=== PATIENT | female | born 1955 | race Caucasian/White ===

== ENCOUNTER 2019-06-09 06:35 | Inpatient (IN) | payer BC ==
[~2019-06-09] VITALS: Ht 152.4 cm; Wt 58.9 kg
[~2019-06-09 06:35] MED LIST: CARI350T PO; CEPH-368 PO; CYCL-259 PO; DIAZ10TA PO; LISI-170 PO; METH750T87 PO; NAPR-685 PO; ONDA4TAB7 PO; OXYC10TA6 PO; ZOLP10TA PO
[2019-06-09] MEDS ORDERED: LACTATED RINGERS 1,000 ML IV SCH (06:57)
[2019-06-09 06:58] VITALS: BP 129/88
[2019-06-09] MEDS ORDERED: CHLORHEXIDINE 15 ML UDC MM ONE (07:00)
[2019-06-09] MEDS ORDERED: VANCOMYCIN 1,000 MG ONE (07:05)
[2019-06-09] MEDS ORDERED: CHLORHEXIDINE 15 ML UDC ONE (07:06)
[2019-06-09] MEDS ORDERED: MIDAZOLAM 1 MG/ML, 2ML ONE ×2 (08:31→10:28)
[2019-06-09] MEDS ORDERED: FENTANYL PF 250 MCG/5ML ONE (08:31)
[2019-06-09] MEDS ORDERED: LIDOCAINE-MPF 2% ,5ML ONE (08:33)
[2019-06-09] MEDS ORDERED: ALBUTEROL SULFATE 2.5 MG/3 ML NPPB PRN (09:30)
[2019-06-09] MEDS ORDERED: OXYcodone 5 MG/5 ML ORAL.SOL UDC PO PRN (09:30)
[2019-06-09] MEDS ORDERED: DIAZEPAM 5 MG/ML, 2ML IVPush PRN (09:30)
[2019-06-09] MEDS ORDERED: ACETAMINOPHEN 325 MG TABLET PO PRN (09:30)
[2019-06-09] MEDS ORDERED: MEPERIDINE/PF 25MG/ML,1ML IVPush PRN (09:30)
[2019-06-09] MEDS ORDERED: MIDAZOLAM 1 MG/ML, 2ML IV PRN (09:30)
[2019-06-09] MEDS ORDERED: FENTANYL PF 100 MCG/2ML IV PRN (09:30)
[2019-06-09] MEDS ORDERED: LABETALOL 5MG/ML, 20ML IV PRN (09:30)
[2019-06-09] MEDS ORDERED: hydrALAzine 20 MG/ML, 1ML IV PRN (09:30)
[2019-06-09] MEDS ORDERED: PROMETHAZINE 25 MG/ML, 1ML IV PRN (09:30)
[2019-06-09] MEDS ORDERED: VANCOMYCIN 1,000 MG IM ONE (09:31)
[2019-06-09] MEDS ORDERED: HEPARIN 1,000 UNITS/ML, 30ML IVPB ONE (09:47)
[2019-06-09] MEDS ORDERED: DEXAMETHASONE 4 MG/ML, 1ML ONE (10:04)
[2019-06-09] MEDS ORDERED: ONDANSETRON 2MG/ML, 2ML ONE (10:04)
[2019-06-09] MEDS ORDERED: CEFAZOLIN 1,000 MG ONE (10:04)
[2019-06-09] MEDS ORDERED: GLYCOPYRROLATE 0.2MG/1ML, 5ML ONE (10:04)
[2019-06-09] MEDS ORDERED: SUCCINYLCHOLINE 20 MG/ML, 10ML ONE (10:04)
[2019-06-09] MEDS ORDERED: ROCURONIUM 10MG/ML,5ML ONE (10:04)
[2019-06-09] MEDS ORDERED: PROPOFOL 10 MG/ML, 20ML ONE (10:04)
[2019-06-09] MEDS ORDERED: NEOSTIGMINE 1 MG/ML, 10ML ONE (10:04)
[2019-06-09] MEDS ORDERED: FENTANYL PF 100 MCG/2ML ONE (10:14)
[2019-06-09] MEDS ORDERED: HYDROmorphone 2 MG/ML, 1ML ONE (10:28)
[2019-06-09] MEDS: HYDROmorphone 2 MG/ML, 1ML IVPush PRN ×3 (10:35→11:16)
[2019-06-09] MEDS ORDERED: METHOCARBAMOL 1,000 MG in DEXTROSE 5% 100 ML IV STA (10:52)
[2019-06-09] MEDS ORDERED: ONDANSETRON 2MG/ML, 2ML IV PRN (13:00)
[2019-06-09] MEDS ORDERED: BISACODYL 10 MG SUPP PR PRN (13:00)
[2019-06-09] MEDS ORDERED: MAGNESIUM HYDROXIDE 8%, 30ML UDC PO PRN (13:00)
[2019-06-09] MEDS ORDERED: morphine SULFATE 10 MG/ML, 1ML IV PRN (13:00)
[2019-06-09] MEDS ORDERED: PROMETHAZINE 25 MG/ML, 1ML IM PRN (13:00)
[2019-06-09] MEDS: METOCLOPRAMIDE 5 MG/ML, 2ML IV SCH ×2 (14:05→19:49)
[2019-06-09] MEDS: D5%-0.9% NACL+KCL 20MEQ 1,000 ML IV SCH (14:05)
[2019-06-09 15:10] VITALS: BP 118/77
[2019-06-09] MEDS: CYCLOBENZAPRINE 10 MG TABLET PO SCH ×2 (16:47→22:38)
[2019-06-09] MEDS: CEFAZOLIN PMX 1GM/50ML 50 ML IVPB SCH (16:47)
[2019-06-09 19:53] VITALS: BP 118/75
[2019-06-09] MEDS ORDERED: ZOLPIDEM 10MG TABLET ONE (22:35)
[2019-06-09] MEDS: ZOLPIDEM 10MG TABLET PO PRN (22:37)
[2019-06-10] MEDS: CEFAZOLIN PMX 1GM/50ML 50 ML IVPB SCH (01:36)
[2019-06-10] MEDS: D5%-0.9% NACL+KCL 20MEQ 1,000 ML IV SCH ×4 (01:36→20:28)
[2019-06-10 01:42] VITALS: BP 105/63
[2019-06-10] MEDS: METOCLOPRAMIDE 5 MG/ML, 2ML IV SCH ×2 (02:52→09:21)
[2019-06-10 05:10] LABS: BASOPHILS # (AUTO) 0.03 x10^3/uL (0-0.1); BASOPHILS % (AUTO) 0 % (0-1); EOSINOPHILS # (AUTO) 0.01 x10^3/uL (0-0.4); EOSINOPHILS % (AUTO) 0 % (1-7); LYMPHOCYTES % (AUTO) 12 % (22-44); MD NO; MEAN CORPUSCULAR HEMOGLOBIN 30.2 pg (27.0-34.8); MEAN CORPUSCULAR HGB CONC 32.7 g/dL (32.4-35.8); MEAN CORPUSCULAR VOLUME 92.4 fL (80-100); MEAN PLATELET VOLUME 7.5 fL (7.4-10.4); MONOCYTES # (AUTO) 0.68 x10^3/uL (0.2-0.8); MONOCYTES % (AUTO) 7 % (2-9); NEUTROPHILS # (AUTO) 7.58 x10^3/uL (1.8-6.8); NEUTROPHILS % (AUTO) 81 % (42-75); PLATELET COUNT 247 x10^3/uL (130-400); RED BLOOD COUNT 3.72 x10^6/uL (3.82-5.3); RED CELL DISTRIBUTION WIDTH 14.5 % (9.6-15.2)
[2019-06-10 05:13] LABS: CHLORIDE 108 mmol/L (98-107)
[2019-06-10 05:18] LABS: ANION GAP 5 mmol/L (5-15); CALCIUM 8.2 mg/dL (8.5-10.1)
[2019-06-10] MEDS: ENOXAPARIN 30 MG/0.3 ML SQ SCH ×2 (06:12→17:53)
[2019-06-10 08:00] VITALS: BP 128/77
[2019-06-10] MEDS: LISINOPRIL 20 MG TABLET PO SCH (08:52)
[2019-06-10] MEDS: CYCLOBENZAPRINE 10 MG TABLET PO SCH ×3 (08:52→20:27)
[2019-06-10] MEDS: SENNA/DOCUSATE TABLET PO SCH (08:52)
[2019-06-10] MEDS: DIAZEPAM 5 MG TABLET PO SCH (08:53)
[2019-06-10] MEDS: OXYcodone IR 5MG TABLET PO PRN ×2 (09:05→16:06)
[2019-06-10 14:00] VITALS: BP 127/87
[2019-06-10 19:08] VITALS: BP 126/79
[2019-06-10] MEDS: ZOLPIDEM 10MG TABLET PO PRN (23:14)
[2019-06-11 04:01] VITALS: BP 135/83
[2019-06-11 05:19] LABS: BASOPHILS # (AUTO) 0.02 x10^3/uL (0-0.1); BASOPHILS % (AUTO) 0 % (0-1); EOSINOPHILS # (AUTO) 0.04 x10^3/uL (0-0.4); EOSINOPHILS % (AUTO) 0 % (1-7); LYMPHOCYTES # (AUTO) 1.39 x10^3/uL (1-3.4); LYMPHOCYTES % (AUTO) 14 % (22-44); MD NO; MEAN CORPUSCULAR HEMOGLOBIN 30.2 pg (27.0-34.8); MEAN CORPUSCULAR HGB CONC 33.1 g/dL (32.4-35.8); MEAN PLATELET VOLUME 7.6 fL (7.4-10.4); MONOCYTES # (AUTO) 0.99 x10^3/uL (0.2-0.8); MONOCYTES % (AUTO) 10 % (2-9); NEUTROPHILS % (AUTO) 76 % (42-75); PLATELET COUNT 251 x10^3/uL (130-400); RED BLOOD COUNT 3.96 x10^6/uL (3.82-5.3); RED CELL DISTRIBUTION WIDTH 14.4 % (9.6-15.2)
[2019-06-11 05:34] LABS: ANION GAP 6 mmol/L (5-15); CALCIUM 8.6 mg/dL (8.5-10.1); CHLORIDE 103 mmol/L (98-107); CREATININE 0.64 mg/dL (0.55-1.02)
[2019-06-11] MEDS: ENOXAPARIN 30 MG/0.3 ML SQ SCH (05:39)
[2019-06-11] MEDS: CYCLOBENZAPRINE 10 MG TABLET PO SCH (07:40)
[2019-06-11] MEDS: SENNA/DOCUSATE TABLET PO SCH (07:40)
[2019-06-11] MEDS: LISINOPRIL 20 MG TABLET PO SCH (07:40)
[2019-06-11] MEDS: DIAZEPAM 5 MG TABLET PO SCH (07:41)
[2019-06-11] MEDS: OXYcodone IR 5MG TABLET PO PRN (07:41)
[2019-06-11 08:28] VITALS: BP 120/68
[2019-06-11] MEDS ORDERED: ENOX40SY4 SQ (12:54)
== END 2019-06-11 13:45 | disposition home or self-care (01) | DRG 460 ==
LOC: ORIP 06:35 → 4NE 12:16
PROVIDERS: ADMIT Orthopaedic Surgery Orthopaedic Surgery of the Spine; ATTEND Orthopaedic Surgery Orthopaedic Surgery of the Spine
PROC: 0ST40ZZ Resection of Lumbosacral Disc, Open Approach (ICD-10-PCS; 2019-06-09)
PROC: 3E0U0GB Introduction of Recombinant Bone Morphogenetic Protein into Joints, Open Approach (ICD-10-PCS; 2019-06-09)
PROC: 0SG30A0 Fusion of Lumbosacral Joint with Interbody Fusion Device, Anterior Approach, Anterior Column, Open Approach (ICD-10-PCS; principal; 2019-06-09 08:30)
DX: M48.07 Spinal stenosis, lumbosacral region (principal); I10 Essential (primary) hypertension; M51.17 Intervertebral disc disorders with radiculopathy, lumbosacral region; M41.9 Scoliosis, unspecified; M51.37 Other intervertebral disc degeneration, lumbosacral region; Z90.710 Acquired absence of both cervix and uterus
CPT/HCPCS: 36415; 72100; 74018; J3490; 80048; 85025; C1713; C1776; G0378; J0690; J1100; J1170; J1644; J1650; J2250; J2405; J2704; J2710; J3010; J3370; C1762; J0330; J2270; J2765; J2800; J3480; J7120